=== PATIENT | female | born 1940 | race Caucasian/White ===

== ENCOUNTER → 2016-07-28 | Outpatient (CLI) | payer MEDICARE, BC ==
[~2016-07-28] MED LIST: ALLEGRA ALLERG180 MG PO; AMBIEN 5MG TABLE5 MG PO; AMOXICILLIN 25250 MG PO; ARICEPT 5MG PO; ARTIFICIAL TEAR1 OI1 OP; BACTRIM DS 8001 TAB PO; BENADRYL25 M2 PO; CEPHALEXIN500 M1 PO; CLARITIN 1010 MG/TAB PO; COLACE 100100 MG/CAP PO; CRANBERRY500 M3 PO; CYMBALTA 60MG60 MG PO; DESYREL 50MG50 MG PO; DULCOLAX S10 MG/SUPP RC; EXCEDRIN EXTRA STR PO; FERREX 150150 MG PO; FLONASE NASAL S16 GM NS; IMODIUM 2MG CAPS2 MG PO; KLONOPIN 0.5MG0.5 MG PO; KLOR-CON 1010 MEQ PO; LIPITOR 10MG10 MG PO; LIQUIFILM TEARS15 ML OU; LOVENOX 4040 MG/0.4 SQ; MILK OF MA400 MG/5 M PO; MIRALAX PA17 GM/Dose PO; MOBIC 7.5MG7.5 MG PO; MYLANTA 150 ML150 M1 PO; MYRBETR25MG PO; NAMENDA 10MG TA10 MG PO; NORCO 325 MG-7.1 TAB PO; PLAVIX 75MG TAB75 MG PO; PREDNISONE 5MG5 MG PO; PROTONIX 40MG T40 MG PO; REFRESH PM1 OI1 OP; REMERON30 MG PO; ROXICODONE 55 MG/TAB PO; SENNA8.6 MG PO; SYNTHROID0.05 MG/TA PO; TENORMIN 2525 MG/TAB PO; TIROSINT50 MCG PO; TRIPLE ANTIBIOT1 O19 TP; TYLENOL 325MG325 MG PO; VITAMIN D 50,1.25 MG PO; VOLTAREN GEL 1%1 TU TP; ZADITOR 5 ML5 ML OP; ZOFRAN 4MG T4 MG/TAB PO
== END ==
LOC: BHSO 09:31
DX: F33.1 Major depressive disorder, recurrent, moderate (principal)

== ENCOUNTER → 2016-08-08 | Outpatient (CLI) | payer MEDICARE, BC ==
[2016-08-08 18:23] LABS: BASO % 0.2 % (0.0-2.0); EOS % 0.2 % (0-4.0); GRAN # 8.1 (1.4-6.5); GRAN % 84.6 % (42.2-75.2); HEMATOCRIT 44.5 % (37.0-47.0); HEMOGLOBIN 14.5 g/dl (12.5-16.0); LYMPH # 0.7 (1.2-3.4); LYMPH % 7.4 % (20.0-51.0); MEAN CELL VOLUME 94 fl (80.0-100.0); MEAN CORPUSCULAR HEMOGLOBIN 31 pg (27.0-31.0); MEAN CORPUSCULAR HGB CONC 33 g/dl (33.0-37.0); MONO # 0.7 (0.1-0.6); MONO % 7.2 % (1.7-9.3); PLATELET COUNT 219 K/mm3 (130-400); RED BLOOD COUNT 4.76 M/mm3 (4.10-5.30); REDCELL DISTRIBUTION WIDTH-CV 13.6 % (11.5-14.5); WHITE BLOOD COUNT 9.6 K/mm3 (4.8-10.8)
[2016-08-08 18:33] LABS: ADJUSTED CALCIUM 9.8 mg/dL (8.4-10.2); ALBUMIN 3.8 gm/dL (3.5-5.0); CALCIUM 9.6 mg/dL (8.4-10.2); CREATININE, serum 0.62 mg/dL (0.52-1.25); POTASSIUM 4.2 mmol/L (3.4-5.0); TOTAL PROTEIN 6.9 gm/dL (6.4-8.2)
== END ==
LOC: ZCOL.LAB 18:10
PROVIDERS: Nurse Practitioner Primary Care
DX: R41.82 Altered mental status, unspecified (principal)

== ENCOUNTER → 2016-09-12 | Outpatient (CLI) | payer MEDICARE, BC | LOC: COL.RAD 10:43 | DX: N39.0 Urinary tract infection, site not specified (principal) ==

== ENCOUNTER 2016-09-28 06:13 | Day surgery (SDC) | payer MEDICARE, BC ==
[2016-09-28] VITALS (7 sets, daily range): BP systolic 124–144; BP diastolic 37–98; PULSE 67–100; TEMP 97.4–98
[~2016-09-28] VITALS: Ht 152.4 cm; Wt 54.5 kg
[~2016-09-28 06:13] MED LIST changes: -ALLEGRA ALLERG180 MG PO; -AMOXICILLIN 25250 MG PO; -ARICEPT 5MG PO; -BACTRIM DS 8001 TAB PO; -BENADRYL25 M2 PO; -CRANBERRY500 M3 PO; -LIPITOR 10MG10 MG PO; -LIQUIFILM TEARS15 ML OU; -MYRBETR25MG PO; -NAMENDA 10MG TA10 MG PO; -REFRESH PM1 OI1 OP; -ROXICODONE 55 MG/TAB PO; -TRIPLE ANTIBIOT1 O19 TP; -VOLTAREN GEL 1%1 TU TP; -ZADITOR 5 ML5 ML OP; -ZOFRAN 4MG T4 MG/TAB PO
[2016-09-28] MEDS ORDERED: LIQUIFILM TEARS15 ML OU ×2 (08:11→08:27)
[2016-09-28] MEDS ORDERED: REFRESH PM1 OI1 OP (08:16)
[2016-09-28] MEDS ORDERED: ZOFRAN 4MG T4 MG/TAB PO (08:17)
[2016-09-28] MEDS ORDERED: BENADRYL25 M2 PO (08:18)
[2016-09-28] MEDS ORDERED: LIPITOR 10MG10 MG PO (08:19)
[2016-09-28] MEDS ORDERED: ARICEPT 5MG PO (08:20)
[2016-09-28] MEDS ORDERED: NAMENDA 10MG TA10 MG PO (08:21)
[2016-09-28] MEDS ORDERED: ZADITOR 5 ML5 ML OP (08:22)
[2016-09-28] MEDS ORDERED: ALLEGRA ALLERG180 MG PO (08:23)
[2016-09-28] MEDS ORDERED: CRANBERRY500 M3 PO (08:24)
[2016-09-28] MEDS ORDERED: TRIPLE ANTIBIOT1 O19 TP (08:24)
[2016-09-28] MEDS ORDERED: ROXICODONE 55 MG/TAB PO ×2 (08:25→08:26)
[2016-09-28] MEDS ORDERED: AMOXICILLIN 25250 MG PO (08:27)
[2016-09-28] MEDS ORDERED: MYRBETR25MG PO (08:28)
[2016-09-28] MEDS ORDERED: BACTRIM DS 8001 TAB PO (08:29)
[2016-09-28] MEDS ORDERED: VOLTAREN GEL 1%1 TU TP (08:30)
[2016-09-28] MEDS ORDERED: CYMBALTA 60MG60 MG PO (08:31)
== END 2016-09-28 12:30 ==
LOC: SDCO 06:13
DX: N81.0 Urethrocele (principal); N30.20 Other chronic cystitis without hematuria; N39.46 Mixed incontinence
CPT/HCPCS: J0690; J1100; J2405; J2704; J3010

== ENCOUNTER → 2019-06-27 | Outpatient (CLI) | payer MEDICARE, BC ==
[~2019-06-27] MED LIST changes: +ALLEGRA ALLERG180 MG PO; +AMOXICILLIN 25250 MG PO; +ARICEPT 5MG PO; +BACTRIM DS 8001 TAB PO; +BENADRYL25 M2 PO; +CRANBERRY500 M3 PO; +LIPITOR 10MG10 MG PO; +LIQUIFILM TEARS15 ML OU; +MYRBETR25MG PO; +NAMENDA 10MG TA10 MG PO; +REFRESH PM1 OI1 OP; +ROXICODONE 55 MG/TAB PO; +TRIPLE ANTIBIOT1 O19 TP; +VOLTAREN GEL 1%1 TU TP; +ZADITOR 5 ML5 ML OP; +ZOFRAN 4MG T4 MG/TAB PO
[2019-06-27 14:51] LABS: BASO # 0.1 (0.0-0.2); BASO % 0.5 % (0.0-2.0); EOS # 0.1 (0.0-0.7); EOS % 1.1 % (0-4.0); GRAN # 8.5 (1.4-6.5); GRAN % 79.6 % (42.2-75.2); HEMATOCRIT 46.4 % (37.0-47.0); LYMPH % 9.3 % (20.0-51.0); MEAN CELL VOLUME 96 fl (80.0-100.0); MEAN CORPUSCULAR HEMOGLOBIN 31 pg (27.0-31.0); MEAN CORPUSCULAR HGB CONC 32 g/dl (33.0-37.0); MEAN PLATELET VOLUME 9.9 fl (7.4-10.4); MONO # 0.9 (0.1-0.6); MONO % 8.8 % (1.7-9.3); PLATELET COUNT 218 K/mm3 (130-400); RED BLOOD COUNT 4.83 M/mm3 (4.10-5.30); REDCELL DISTRIBUTION WIDTH-CV 13.9 % (11.5-14.5)
[2019-06-27 15:00] LABS: ALBUMIN 4.1 gm/dL (3.5-5.0); BILIRUBIN,TOTAL 0.5 mg/dL (0.0-1.0); CALCIUM 9.3 mg/dL (8.4-10.2); CREATININE, serum 0.94 (0.52-1.25); POTASSIUM 3.9 mmol/L (3.4-5.0); TOTAL PROTEIN 6.7 gm/dL (6.4-8.2)
== END ==
LOC: ZCOL.LAB 14:44
PROVIDERS: Internal Medicine
DX: J40 Bronchitis, not specified as acute or chronic (principal); I67.9 Cerebrovascular disease, unspecified